=== PATIENT | female | born 2000 | race Native Hawaiian/Other Pacific Islander ===

== ENCOUNTER 2025-06-01 16:30 | Outpatient (REF) | payer OTHER, SELFPAY ==
[2025-06-01 16:54] LABS: MANUAL DIFF FLAG NO
[2025-06-01 17:38] LABS: Hematocrit 36.3 % (37.0-47.0); Hemoglobin 12.3 g/dl (12.0-16.0); Imm Gran Abs Auto 0.02 X10*3/uL (0.00-0.03); Imm Gran Pct Auto 0.2 % (0.0-0.4); Lymphocytes Absolute Auto 2.9 X10*3/uL (1.2-4.9); Mean Corpuscular HGB Conc 33.9 g/dl (31.0-35.0); Mean Corpuscular Hemoglobin 31.7 pg (27.0-33.0); Mean Corpuscular Volume 93.6 fL (80.0-98.0); NRBC Abs Auto 0.000 X10*3/uL (0.0-0.012); NRBC Pct Auto 0.0 /100WBC (0.0-0.2); Platelet Count 327 X10*3/uL (160-400); Red Blood Count 3.88 X10*6/uL (4.20-5.50); White Blood Count 8.6 X10*3/uL (4.8-10.8)
[2025-06-01 17:50] LABS: Alanine Aminotransferase 22 U/L (0-31); Albumin Level 4.7 g/dL (3.5-5.0); Alkaline Phosphatase 74 U/L (39-117); Anion Gap 9 (12-20); Aspartate Amino Transferase 22 U/L (5-31); Blood Urea Nitrogen 16 mg/dL (9-16); Calcium 9.8 mg/dL (8.4-10.2); Carbon Dioxide 30 mmol/L (22-29); Chloride 105 mmol/L (96-108); Estimated Glomerular Filt Rate > 60; Potassium 3.8 mmol/L (3.3-5.1); Sodium 140 mmol/L (135-145); Total Protein 6.9 g/dL (6.5-8.0)
--- OUTSIDE RECORDS SUMMARY | 2025-06-01 18:44 | XMS_ITS | Encounter Summary ---
Author Organization [facility] Address [address] [facility] [address] [place] [id number] Phone Care Team Providers Care Candle Molder Name Role Phone Shantal Cota NP Primary Care Provide r Meliton Reyes MD Primary Care Provider [phone] Encounter Details Date Type Department Care Team (Latest Contact Info) Description 08/02/2017 Transcribe Orders [facility] [address] [place], [place] [id number] Shantal Cota NP [address] [place] [address] [email or web address] adult [facility] check (Primary Dx) Social History Tobacco Use Types Packs/Day Years Used Date Smoking Tobacco: Never Assessed Comments Unknown Sex and Gender Information Value Date Recorded Sex Assigned at Female 06/18/2023 9:16 AM EDT Legal Sex Female 8:47 PM EDT Gender Identity Female 06/18/2023 9:16 AM EDT Sexual Orientation Straight 06/18/2023 9 :16 AM EDT documented as of this encounter Plan of Treatment Not on file documented as of this encounter Results * Chlamydia trachomatis nucleic acid detection (08/02/2017 2:42 PM EST) CHLAMYDIA TRACHOMATIS Not Detected Not Detected [facility] Urine (Urine) 08/02/2017 2:4 2 PM EST 08/02/2017 6:55 PM EST us Shantal Cota WOOL CLASSER NON CULTURE MICROBIOL OGY Final Result [facility] [address] [place] [address] documented in this encounter Visit Diagnoses Diagnosis Well adult health check- Primary Unspecified general medical examination documented in this encounter Additional Health Concerns Infection Onset Date Last Indicated Resolved Time CoV-Risk 04/24/2022 04/24/2022 04/25/2022 11:5 7 AM EDT COVID-19 04/24/2022 04/24/2022 05/15/2022 1:21 AM EDT documented as of this encounter Care Teams Candle Molder Relationship Specialty Start Date End Date Shantal Cota NP [address] [place] [address] [email or web address] PCP - General Family Medicine 08/02/17 04/19/22 Meliton Reyes MD [address] [facility], [address] [place] [address] [email or web address] PCP - General Internal Medicine 04/20/22 documented as of this encounter Additional Source Comments The information contained in this document represents components of the legal health record. It is not the complete legal health record.[facility]
--- OUTSIDE RECORDS SUMMARY | 2025-06-01 18:44 | XMS_ITS | Clinical Summary ---
Author Organization [facility] Address [address] [address] Phone Care Team Providers Care Machine Rough Rounder Name Role Phone Meliton Reyes MD Primary Care Provider [phone] Allergies Active Allergy Reactions Criticality Noted Date Comments Gluten 09/15/2018 Miconazole Rash Medium 05/07/2018 Other reaction(s): burning, swelling Pollen Extracts 02/21/2021 seasonal Medications OPZELURA 1.5 % Crea APPLY TOPICALLY AFFECTED AREAS OF FACE AND BODY TWICE A DAY DIRECTED FOR VITILIGO 4 Active clindamycin-benzo yl peroxide (BENZACLIN) gel 1x a day 4 Active chlorhexidine (PERIDEX) 0.12 % solution Use as directed 15 mL in the mouth or throat. 4 Active dextroamphetamine -amphetamine (ADDERALL XR) 15 MG 24 hr capsuleIndication s:Attention deficit hyperactivity disorder (ADHD), combined type Take 1 capsule (15 mg total) by mouth every morning. 30 capsule 4 Active albuterol 90 mcg/actuation inhalerIndication s:Environmental allergies,Asthma due to environmental allergies Inhale 2 puffs into the lungs every 6 (six) hours as needed for wheezing. Active hydrocortisone-pr amoxine (PROCTOFOAM HC) rectal foam Place rectally as needed for hemorrhoid discomfort. INSERT 1 APPLICATOR INTO THE RECTUM 2 (TWO) TIMES A DAY FOR 10 DAYS. Strength: 1-1 % 5 Active budesonide-formot herrera 160-4.5 mcg/actuation inhalerIndication s:Environmental allergies,Asthma due to environmental allergies Inhale 1 puff twice daily & 1 puff as needed for asthma symptoms. Contact your healthcare provider if you are approaching the maximum dose of 12 inhalations per day. (Dispense generic, brand Symbicort, or Breyna per insurance) 10.2 g 5 5 Active Active Problems Problem Noted Date Diagnosed Date Environmental allergies 03/21/2025 Assessment & Plan (03/21/2025 1:58 PM EDT): - Symptoms exacerbated by environmental factors such as pollen, dust, and mold. - Advised to consider allergy injections and referred to Dr. Burgess, an microbiology lab assistant, for further evaluation and treatment. - Recommended home modifications including the use of a hypoallergenic mattress bag and pillowcase, and the use of an air purifier to alleviate allergy symptoms. Orders: External Referral to Allergy ([facility]) budesonide-formoterol 160-4.5 mcg/actuation inhaler; Inhale 1 puff twice daily & 1 puff as needed for asthma symptoms. Contact your healthcare provider if you are approaching the maximum dose of 12 inhalations per day. (Dispense generic, brand Symbicort, or Breyna per insurance) Asthma due to environmental allergies 03/21/2025 Assessment & Plan (03/21/2025 1:58 PM EDT): - Symptoms include difficulty breathing, sneezing, congestion, and a persistent cough, particularly at night. Peak flow test performed, showing slightly decreased lung function; lungs sound clear on auscultation. - Recommended Flonase nasal spray and a non-drowsy antihistamine such as Zyrtec. - Discouraged the use of Benadryl due to sedative effects. - Prescribed an inhaler with instructions to use 2 puffs as needed. - Advised to continue using the current rescue inhaler as needed. Orders: External Referral to Allergy ([facility]) budesonide-formoterol 160-4.5 mcg/actuation inhaler; Inhale 1 puff twice daily & 1 puff as needed for asthma symptoms. Contact your healthcare provider if you are approaching the maximum dose of 12 inhalations per day. (Dispense generic, brand Symbicort, or Breyna per insurance) Attention deficit hyperactivity disorder, combin ed type 05/11/2015 Overview (06/02/2024): 09/2021 Adderall XR 15 mg working very well. Rarely uses short acting tab. Discussed transition to adult med but will refill till re-established. Assessment & Plan (04/03/2024 1:01 PM EDT): Stable on current dosing. Assessment & Plan (01/19/2024 8:13 PM EDT): Difficulty accessing medication, offered to switch medication to another that is in stock closer to her home or continue current course. She understands that the medication will be restocked if not picked up. Assessment & Plan (10/18/2023 3:15 PM EST): Continue current dosing, PDMP reviewed. On CSRP. Assessment & Plan (04/10/2023 10:37 AM EDT): Stable on current dosing of Adderall 15 mg XR daily. She will continue the current medication except for vacations. 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 Due to shortages of medications nationally, I recommended that she also keep a monthly recurring reminder in her phone calendar. Assessment & Plan (04/24/2022 9:51 PM EDT): Has been stable on present regimen, short acting for evening classes for her masters. She may continue on current treatment regimen, recommend she request refill through [facility] in 3 weeks. If she is not able to reliably contact office for refill request, CSRP may be useful. PDMP reviewed. Encounters Date Type Department Care Team Description 05/05/2025 Nurse Triage [facility] [address] [place] [address] Abi Duff RN Concussion 03/19/2025 9:30 AM EDT Office Visit [facility] [address] [place] [address] Meliton Reyes MD Asthma due to environmental allergies (Primary Dx); Environmental allergies from Last 3 Months Immunizations Immunization Administration Dates Next Due COVID-19 (Pre-07/01) Pfizer Vaccine, mRNA, PF 12/25/2020,12/03/2020 DTaP 03/22/2004, 1,1999,06/30,1999 HPV,quadrivalent 03/01/2014,02/28/2013 HPV9 03/09/2015 Hepatitis A, Adult 02/21/2021,07/13/2019 Hepatitis B 1999,1999,1999 Hib,PRP-T 03/01/2000, 9,1999,04/28 IPV 05/18/2003, 9,1999,04/28 Influenza Quadrivalent Intranasal 08/03/2014 Influenza Quadrivalent Prese rvative Free IM 10/20/2023(Deferred: Patient Decision),10/02/2020,07/13/2019,2017,08/02/2017 Influenza Quadrivalent Prese rvative Free Intradermal 06/17/2018 Influenza quadrivalent nasal 08/11/2011,05/08/20 10 Influenza, Unspecified Formulation 10/29/2008 MMR 03/22/2004,03/01/2000 Meningococcal MCV4P 03/09/2015,02/22/2011 Pneumococcal conjugate, PCV 7 09/19/2000, 000 Tdap 02/21/2021,02/22/2011 Varicella 03/10/2007,03/01/2000 Family History Medical History Relation Comments Asthma Brother Asthma Mother Skin melanoma Mother Relation Status Comments Brother Alive Mother Alive Social History Tobacco Use Types Packs/Day Years Used Date Smoking Tobacco: Never Smokeless Tobacco: Never Tobacco Cessation:Counseling Given: Not Answered Alcohol Use Standard Drinks/Week Comments Yes 0 (1 standard drink = 0.6 oz pur e alcohol) occ Education Answer Date Recorded Are you interested in more education? Not on denice e 01/04/2023 Are you concerned about learning? Not on file 01/04/2023 No 01/04/2023 No 01/04/2023 Digital Access Answer Date Recorded No 02/01/2023 No 02/01/2023 Reliable internet access at home? Not on file 02/01/2023 Device with a working camera? Not on file Comments No Sex and Gender Information Value Date Recorded Sex Assigned at Female 06/18/2023 9:16 AM EDT Legal Sex Female 8:47 PM EDT Gender Identity Female 06/18/2023 9:16 AM EDT Sexual Orientation Straight 06/18/2023 9: 16 AM EDT Last Filed Vital Signs Vital Sign Reading Time Taken Comments Blood Pressure 102/60 03/19/2025 9:30 AM EDT Pulse 81 03/19/2025 9:30 AM EDT Temperature 36.5 C (97.7 F) 03/19/2025 9:30 AM EDT Respiratory Rate - - Oxygen Saturation 98% 03/19/2025 9:30 AM EDT Inhaled Oxygen Concentration - - Weight 67.9 kg (149 lb 9.6 oz) 03/19/2025 9:30 A M EDT Height 170.3 cm (5' 7.05 ) 01/17/2024 4:33 PM ED T Body Mass Index 23.4 01/17/2024 4:33 PM EDT Plan of Treatment Health Maintenance Due Date Last Done Comments DEPRESSION SCREENING 2011 HEPATITIS C SCREENING 2017 HIV ONE-TIME SCREENING (18-65 YEARS) 2017 PNEUMOCOCCAL VACCINES (0-49 years) (1 of 2 - PCV) 2018 09/19/2000, 04/12/2000 PAP SMEAR 02/27/2020 INFLUENZA VACCINE (#1) 2025 , 07/13/2019, 07/08/2018, Additional history exists COVID-19 VACCINE ( season) 2025 12/25/2020, 12/03/2020 Adult Td,Tdap Booster 02/21/2031 02/21/2021, 011 HIB VACCINES Completed 03/01/2000, 08/09, 1999, Additional history exists HPV VACCINES Completed 03/09/2015, 02/08, 02/28/2013 MENINGOCOCCAL VACCINES (ACWY) Completed 03/09/2015, 02/22/2011 HEPATITIS A VACCINES Aged Out 02/21/2021, 07/13/20 19 No longer eligible based on patient's age to complete this topic SMOKING STATUS SCREENING (Once After 26 Yrs) Completed 03/19/2025 MENINGOCOCCAL VACCINES (B) Aged Out N o longer eligible based on patient's age to complete this topic Medical Devices Not on file [facility] Care Teams Machine Rough Rounder Relationship Specialty Start Date End Date Meliton Reyes MD [address] [place] [address], [address] [place] [address] [email or web address] PCP - General Internal Medicine 04/20/22 Additional Source Comments The information contained in this document represents components of the legal health record. It is not the complete legal health record.[facility]
== END 2025-06-01 16:31 | disposition home or self-care (01) ==
LOC: HO.LAB 16:30
PROVIDERS: PCP Pediatrics; Visit Provider Nurse Practitioner Family
DX: J45.909 Unspecified asthma, uncomplicated (principal)
CPT/HCPCS: 36415; 80053; 82785; 85025; 86003